=== PATIENT | male | born 1930 | race Caucasian/White ===

== ENCOUNTER 2016-07-30 23:11 | Inpatient (IN) | payer MEDICARE, OTHER ==
[~2016-07-30] VITALS: Ht 172.7 cm; Wt 70.6 kg
[2016-07-30 23:49] VITALS: BP 134/79; PULSE 78; TEMP 98.6
[2016-07-31] MEDS ORDERED: COUMADIN 5MG5 MG/TAB PO (00:02)
[2016-07-31] MEDS ORDERED: PROTONIX20 MG PO (00:03)
[2016-07-31] MEDS ORDERED: COUMADIN 22.5 MG/TAB PO (00:03)
[2016-07-31] MEDS ORDERED: LUTEIN20 M1 PO (00:04)
[2016-07-31] MEDS ORDERED: COMPLETE SENIOR1 TA1 PO (00:04)
[2016-07-31] MEDS ORDERED: STOOL SOFTENER100 M2 PO (00:04)
[2016-07-31] MEDS ORDERED: TOPROL XL 25MG25 MG PO (00:05)
[2016-07-31] MEDS ORDERED: VITAMIN C500 MG PO (00:06)
[2016-07-31] MEDS ORDERED: ZOCOR 20MG20 MG PO (00:06)
[2016-07-31] MEDS ORDERED: DITROPAN 5MG TAB5 MG PO (00:06)
[2016-07-31 00:49] LABS: PH 6 (5-8); SQUAMOUS EPITHELIAL 0-2 /hpf; URINE APPEARANCE Clear; URINE BACTERIA None Seen /hpf; URINE BILIRUBIN Negative (NEGATIVE); URINE BLOOD Negative (NEGATIVE); URINE COLOR Yellow; URINE GLUCOSE Negative (NEGATIVE); URINE KETONE Trace (NEGATIVE); URINE UROBILINOGEN Negative (NEGATIVE); URINE WBC 0-2 /hpf
[2016-07-31 00:52] LABS: URINE RBC 0-2 /hpf
[2016-07-31 01:49] LABS: PH 5 (5-8); SQUAMOUS EPITHELIAL 0-2 /hpf; URINE APPEARANCE Hazy; URINE BACTERIA None Seen /hpf; URINE BILIRUBIN Negative (NEGATIVE); URINE BLOOD 2+ (NEGATIVE); URINE COLOR Yellow; URINE GLUCOSE Negative (NEGATIVE); URINE KETONE Trace (NEGATIVE); URINE RBC 20-50 /hpf; URINE UROBILINOGEN Negative (NEGATIVE)
[2016-07-31 01:59] LABS: BASO % 0.1 % (0.0-2.0); EOS % 0.1 % (0-4.0); GRAN # 10.2 (1.4-6.5); GRAN % 75.4 % (42.2-75.2); LYMPH # 1.9 (1.2-3.4); LYMPH % 14.2 % (20.0-51.0); MEAN CELL VOLUME 96 fl (80.0-100.0); MEAN CORPUSCULAR HGB CONC 33 g/dl (33.0-37.0); MEAN PLATELET VOLUME 9.8 fl (7.4-10.4); MONO # 1.3 (0.1-0.6); MONO % 9.9 % (1.7-9.3); PLATELET COUNT 146 K/mm3 (130-400); RED BLOOD COUNT 3.29 M/mm3 (4.20-5.60); REDCELL DISTRIBUTION WIDTH-CV 15.6 % (11.5-14.5); WHITE BLOOD COUNT 13.5 K/mm3 (4.8-10.8)
[2016-07-31 02:03] LABS: HEMATOCRIT 31.7 % (42.0-52.0); HEMOGLOBIN 10.5 g/dl (13.5-18.0); MEAN CORPUSCULAR HEMOGLOBIN 32 pg (27.0-31.0)
[2016-07-31 02:05] LABS: INR 2.9 (0.8-3.0); PROTHROMBIN TIME 33.2 SECONDS (9.7-12.8)
[2016-07-31 02:13] LABS: ADJUSTED CALCIUM 8.8 mg/dL (8.4-10.2); ALBUMIN 3.6 gm/dL (3.5-5.0); CALCIUM 8.5 mg/dL (8.4-10.2); CREATININE, serum 0.74 mg/dL (0.66-1.25); POTASSIUM 4.6 mmol/L (3.4-5.0); TOTAL PROTEIN 6.2 gm/dL (6.4-8.2)
[2016-07-31 02:24] VITALS: BP 130/67; PULSE 80; TEMP 98.5
[2016-07-31 05:15] VITALS: BP 132/60; PULSE 72; TEMP 98.3
[2016-07-31 09:31] VITALS: BP 87/54; PULSE 81; TEMP 97.4
[2016-07-31 13:32] VITALS: BP 129/72; PULSE 82; TEMP 99.5
[2016-07-31 17:58] VITALS: BP 124/70; PULSE 67; TEMP 98
[2016-07-31 21:50] VITALS: BP 116/54; PULSE 76; TEMP 98.1
[2016-08-01 01:34] VITALS: BP 112/51; PULSE 71; TEMP 98
[2016-08-01 05:07] VITALS: BP 113/51; PULSE 78; TEMP 97.9
[2016-08-01 06:36] LABS: INR 1.6 (0.8-3.0); PROTHROMBIN TIME 17.6 SECONDS (9.7-12.8)
[2016-08-01 06:43] LABS: MEAN CELL VOLUME 99 fl (80.0-100.0); MEAN CORPUSCULAR HGB CONC 33 g/dl (33.0-37.0); MEAN PLATELET VOLUME 10.7 fl (7.4-10.4); PLATELET COUNT 125 K/mm3 (130-400); RED BLOOD COUNT 2.52 M/mm3 (4.20-5.60); REDCELL DISTRIBUTION WIDTH-CV 15.6 % (11.5-14.5); WHITE BLOOD COUNT 13.6 K/mm3 (4.8-10.8)
[2016-08-01 06:47] LABS: CALCIUM 7.9 mg/dL (8.4-10.2); CREATININE, serum 0.66 mg/dL (0.66-1.25); POTASSIUM 4.6 mmol/L (3.4-5.0)
[2016-08-01 06:58] LABS: ADD PATHOLOGY DIFF REVIEW NO; HEMATOCRIT 24.9 % (42.0-52.0); HEMOGLOBIN 8.2 g/dl (13.5-18.0); MEAN CORPUSCULAR HEMOGLOBIN 33 pg (27.0-31.0)
[2016-08-01 07:54] LABS: BAND 4 % (0-10); NEUTROPHILS 80 % (42.0-75.2); TOTAL CELLS COUNTED 100
[2016-08-01 07:56] LABS: HYPOCHROMIA 2+; PLATELET ESTIMATE NORMAL (NORMAL); POIKILOCYTOSIS 1+
[2016-08-01 09:28] VITALS: BP 132/54; PULSE 64; TEMP 97.9
[2016-08-01 10:34] LABS: PARTIAL THROMBOPLASTIN TIME 30.7 SECONDS (26.0-37.0)
[2016-08-01 13:29] VITALS: BP 135/56; PULSE 51; TEMP 98.2
[2016-08-01 17:35] VITALS: BP 134/53; PULSE 98; TEMP 98.2
[2016-08-01 21:18] VITALS: BP 134/47; PULSE 69; TEMP 98.2
[2016-08-02] VITALS (14 sets, daily range): BP systolic 95–143; BP diastolic 43–75; PULSE 68–91; TEMP 97.8–98.7
[2016-08-02 06:46] LABS: MEAN CELL VOLUME 97 fl (80.0-100.0); MEAN CORPUSCULAR HGB CONC 33 g/dl (33.0-37.0); PLATELET COUNT 132 K/mm3 (130-400); RED BLOOD COUNT 2.36 M/mm3 (4.20-5.60); REDCELL DISTRIBUTION WIDTH-CV 15.3 % (11.5-14.5); WHITE BLOOD COUNT 16.9 K/mm3 (4.8-10.8)
[2016-08-02 06:59] LABS: CALCIUM 7.6 mg/dL (8.4-10.2); CREATININE, serum 0.62 mg/dL (0.66-1.25); POTASSIUM 3.9 mmol/L (3.4-5.0)
[2016-08-02 07:04] LABS: INR 1.3 (0.8-3.0); PROTHROMBIN TIME 14.9 SECONDS (9.7-12.8)
[2016-08-02 07:09] LABS: ADD PATHOLOGY DIFF REVIEW NO; HEMATOCRIT 22.9 % (42.0-52.0); HEMOGLOBIN 7.6 g/dl (13.5-18.0); MEAN CORPUSCULAR HEMOGLOBIN 32 pg (27.0-31.0)
[2016-08-02 09:48] LABS: BAND 9 % (0-10); NEUTROPHILS 65 % (42.0-75.2); TOTAL CELLS COUNTED 100
[2016-08-02 09:50] LABS: PLATELET ESTIMATE NORMAL (NORMAL)
[2016-08-03 02:40] VITALS: BP 124/57; PULSE 72; TEMP 98.5
[2016-08-03 05:47] VITALS: BP 122/49; PULSE 62; TEMP 98.2
[2016-08-03 06:54] LABS: MEAN CELL VOLUME 95 fl (80.0-100.0); MEAN CORPUSCULAR HGB CONC 34 g/dl (33.0-37.0); MEAN PLATELET VOLUME 10.9 fl (7.4-10.4); PLATELET COUNT 161 K/mm3 (130-400); RED BLOOD COUNT 2.56 M/mm3 (4.20-5.60); REDCELL DISTRIBUTION WIDTH-CV 15.9 % (11.5-14.5); WHITE BLOOD COUNT 12.8 K/mm3 (4.8-10.8)
[2016-08-03 06:56] LABS: HEMATOCRIT 24.4 % (42.0-52.0); HEMOGLOBIN 8.3 g/dl (13.5-18.0); MEAN CORPUSCULAR HEMOGLOBIN 32 pg (27.0-31.0)
[2016-08-03 06:57] LABS: INR 1.3 (0.8-3.0); PROTHROMBIN TIME 14.1 SECONDS (9.7-12.8)
[2016-08-03 07:07] LABS: CALCIUM 7.7 mg/dL (8.4-10.2); CREATININE, serum 0.69 mg/dL (0.66-1.25); POTASSIUM 4.5 mmol/L (3.4-5.0)
[2016-08-03 09:47] VITALS: BP 134/55; PULSE 99; TEMP 97.8
[2016-08-03 13:20] VITALS: BP 112/49; PULSE 90; TEMP 97.4
[2016-08-03 17:18] VITALS: BP 124/60; PULSE 102; TEMP 98.1
[2016-08-03 21:24] VITALS: BP 122/66; PULSE 83; TEMP 98
[2016-08-04] VITALS (9 sets, daily range): BP systolic 98–115; BP diastolic 46–62; PULSE 79–97; TEMP 97.5–98.3
[2016-08-04 07:06] LABS: INR 1.3 (0.8-3.0); PROTHROMBIN TIME 14.4 SECONDS (9.7-12.8)
[2016-08-04 07:46] LABS: CALCIUM 7.4 mg/dL (8.4-10.2); CREATININE, serum 0.69 mg/dL (0.66-1.25); POTASSIUM 4.2 mmol/L (3.4-5.0)
[2016-08-05 01:28] VITALS: BP 112/57; PULSE 86; TEMP 98
[2016-08-05 05:15] VITALS: BP 111/53; PULSE 67; TEMP 97.6
[2016-08-05 07:07] LABS: INR 1.9 (0.8-3.0)
[2016-08-05 07:10] LABS: MEAN CELL VOLUME 97 fl (80.0-100.0); MEAN CORPUSCULAR HGB CONC 34 g/dl (33.0-37.0); MEAN PLATELET VOLUME 9.9 fl (7.4-10.4); PLATELET COUNT 188 K/mm3 (130-400); RED BLOOD COUNT 2.55 M/mm3 (4.20-5.60); REDCELL DISTRIBUTION WIDTH-CV 15.3 % (11.5-14.5); WHITE BLOOD COUNT 9.2 K/mm3 (4.8-10.8)
[2016-08-05 07:13] LABS: HEMATOCRIT 24.6 % (42.0-52.0); HEMOGLOBIN 8.3 g/dl (13.5-18.0); MEAN CORPUSCULAR HEMOGLOBIN 33 pg (27.0-31.0)
[2016-08-05] MEDS ORDERED: NORCO 325 MG-51 TAB PO (08:19)
[2016-08-05 10:08] VITALS: BP 110/51; PULSE 52; TEMP 98.6
[2016-08-05 13:12] VITALS: BP 110/51; PULSE 52; TEMP 98.6
== END 2016-08-05 13:30 | DRG 481 ==
LOC: SURG 23:11
PROVIDERS: Family Medicine; Orthopaedic Surgery
PROC: 0QSC06Z Reposition Left Lower Femur with Intramedullary Internal Fixation Device, Open Approach (ICD-10-PCS; principal; 2016-08-02 13:00)
DX: S72.402A Unspecified fracture of lower end of left femur, initial encounter for closed fracture (principal); D62 Acute posthemorrhagic anemia; E87.1 Hypo-osmolality and hyponatremia; E44.0 Moderate protein-calorie malnutrition; V00.141A Fall from scooter (nonmotorized), initial encounter; S40.012A Contusion of left shoulder, initial encounter; I48.91 Unspecified atrial fibrillation; Z79.01 Long term (current) use of anticoagulants; Z87.891 Personal history of nicotine dependence
CPT/HCPCS: 99222-AI; 99232-AI; 99239; A9284; C1713; J0690; J1100; J1170; J1644; J2250; J2270; J2405; J2704; J3010; J3430; J7050; J7120; P9016